=== PATIENT | male | born 1950 | race Caucasian/White ===

== ENCOUNTER 2018-12-25 14:52 | Emergency (ER) | payer OTHER, MEDICARE, SELFPAY ==
[2018-12-25] VITALS (11 sets, daily range): BP systolic 108–139; BP diastolic 39–76; PULSE 69–86; RESP 15–21; O2SAT 88–98
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
[2018-12-25 15:01] LABS: Add Manual Diff / Slide Review NO; Basophils Absolute Auto 0 /uL (0-100); Basophils Percent Auto 0.4 % (0-2); Eosinophils Absolute Auto 200 /uL (0-450); Eosinophils Percent Auto 2.1 % (2-4); Hematocrit 46.5 % (41-53); Lymphocytes Absolute Auto 2700 /uL (1100-4500); Lymphocytes Percent Auto 28.3 % (25-40); Mean Corpuscular HGB Conc 34.5 % (30-36); Mean Corpuscular Hemoglobin 32.1 PG (26-34); Monocytes Absolute Auto 800 /uL (0-900); Neutrophils Absolute Auto 5800 /uL (1500-7000); Neutrophils Percent Auto 61.2 % (50-75); Platelet Count 213 X10^3/uL (150-400); Red Cell Distribution Width 13.7 % (11.6-14.8); White Blood Cell Count 9.5 X10^3/uL (4.5-11.0)
[2018-12-25 15:07] LABS: PTT Partial Thromboplastin Tim 30 SECONDS (26.4-36.2)
[2018-12-25 15:09] LABS: Alanine Aminotransferase 19 IU/L (21-72); Albumin 4.1 g/dL (3.5-5.0); Albumin Globulin Ratio 1.4 (1.0-2.8); Alkaline Phosphatase 99 U/L (38-126); Aspartate Aminotransferase 22 IU/L (17-59); Bilirubin Total 0.7 mg/dL (0.2-1.3); Blood Urea Nitrogen 17 mg/dL (9-20); Calcium 9.4 mg/dL (8.4-10.2); Carbon Dioxide 27 mmol/L (22-32); Chloride 98 mmol/L (98-107); Creatine Kinase 63 U/L (55-170); Estimated Glomerular Filt Rate > 60.0 mL/min (>60); Ethanol (ETOH) < 10 mg/dL; Globulin 2.9 g/dL (1.7-4.1); Glucose 102 mg/dL (80-110); HEMOLYSIS 21 (0-50); Lipase 26 U/L (23-300); Sodium 135 mmol/L (137-145)
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
[2018-12-25] MEDS: TET,DIPH,PERTUSS(ACELL),VAC/PF 0.5 ML SYRINGE IM (15:16)
[2018-12-25] MEDS: SODIUM CHLORIDE 0.9% 1,000 ML 1000 ML IV (15:17)
[2018-12-25 15:21] LABS: Troponin I < 0.012 ng/mL (0.01-0.034)
[2018-12-25 16:42] LABS: Urine Amphetamines Negative (Negative); Urine Barbiturates Negative (Negative); Urine Benzodiazepines Negative (Negative); Urine Cocaine Negative (Negative); Urine MDMA Negative (Negative); Urine Methadone Negative (Negative); Urine Methamphetamines Negative (Negative); Urine Morphine/Opi cutoff 2000 Negative (Negative); Urine Oxycodone Negative (Negative); Urine Phencyclidine Negative (Negative); Urine Tetrahydrocannabinol Negative (Negative); Urine Tricyclic Antidepressant Negative (Negative)
[2018-12-25] MEDS: MORPHINE 4 MG/ML INJ IV (19:24)
== END 2018-12-25 22:37 | disposition short-term general hospital (02) ==
PROVIDERS: Emergency Provider Emergency Medicine
DX: R55 Syncope and collapse (principal); S50.812A Abrasion of left forearm, initial encounter; S32.010A Wedge compression fracture of first lumbar vertebra, initial encounter for closed fracture; R07.9 Chest pain, unspecified; V57.5XXA Driver of pick-up truck or van injured in collision with fixed or stationary object in traffic accident, initial encounter; Y99.0 Civilian activity done for income or pay; Z23 Encounter for immunization; Z79.82 Long term (current) use of aspirin
CPT/HCPCS: 36415; 36591; 70450; 71046; 72100; 80053; 80305; 80320; 81003; 82550; 82962; 83690; 84484; 85025; 85610; 85730; 86850; 86900; 86901; 90472; 93005; 96361; 96372; 96374; 99285; 90715; J2270

== ENCOUNTER 2019-08-04 10:39 | Day surgery (SDC) | payer OTHER, SELFPAY ==
[2019-07-31 09:37] VITALS: BMI 33.7
[2019-08-04] VITALS (8 sets, daily range): BP systolic 122–148; BP diastolic 66–88; PULSE 53–64; RESP 12–20; TEMP 36.2–37.1; O2SAT 92–96; BMI 33.7
[2019-08-04] MEDS: LACTATED RINGERS 1,000 ML 42 ML IV (11:55)
--- NOTE | 2019-08-04 12:07 | PM.PREOP ---
Pre-operative Note Interval Note History & Physical reviewed/Exam performed by Physician: Yes Changes to H&P: No
--- NOTE | 2019-08-04 13:23 | SUR.PREOP ---
Block start time [1306] . Monitoring initiated and maintained throughout procedure. Oxygen and medications given per anesthesiologist instructions. Patient remained stable throughout procedure, no adverse reactions noted. Block end time [1320]. pt alert and vss. pt talking to RN during procedure. Pt taken directly into the OR after completion of the block by JOSÉ MIGUEL Solano.
[2019-08-04] MEDS: CEFAZOLIN 2 GM/100 ML FROZ.PIGGY IV (13:30)
--- NOTE | 2019-08-04 13:51 | PM.PROC.1 ---
Procedures Date/Time Date of procedure: 08/04/19 Time of procedure: 13:15 General Procedure description: Ultrasound guided interscalene brachial plexus nerve block for post op pain control after right shoulder by Dr. Villagomez. Risk and benefits of procedure discussed with patient. ASA monitoring applied to patient. O2 given via nasal cannula. 2 mg Versed and 50 mcg fentanyl given for procedural sedation. Skin site was prepped with chlorhexidine and allowed to fully dry. Sterile gloves, mask, hat and probe cover were used to maintain sterility. 2% lidocaine and 30ga needle was used to make a small skin wheal at needle insertion site. Under ultrasound guidance, a 21ga 50mm [place] needle was directed into the interscalene groove (middle/anterior scalenes) near the brachial plexus. Patient reported no parasthesias. After negative aspiration, 20 mL 0.5% ropivicaine and 10mg dexamethasone were injected around brachial plexus. Patient tolerated procedure well.
--- NOTE | 2019-08-04 13:57 | SUR.OPER ---
Lateral on padded OR bed with persaud bag positioner, head on pillow, gel axillary roll in place, bottom leg bent with gel pad under knee to foot, upper leg straight and supported with pillows. Operative arm secured in shoulder positioning suspension device. non-operative arm secured on padded arm board. Safety belt at hip, tape over blanket securing lower legs.
[2019-08-04] MEDS: BUPIVACAINE 0.5% W/ EPI (PF) 10 ML VIAL 30 ML INJ (14:04)
[2019-08-04] MEDS: SODIUM CHLORIDE IRRIG SOLUTION 3,000 ML, EPINEPHrine 1 MG IRR (14:05)
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
[2019-08-04] MEDS: OXYCODONE IR 5 MG TABLET PO (15:27)
[2019-08-04] MEDS: hydrOXYzine pamoate 25 MG CAPSULE PO (15:27)
== END 2019-08-04 15:47 | disposition home or self-care (01) ==
PROVIDERS: PCP Family Medicine; Referring Provider Orthopaedic Surgery; Visit Provider Orthopaedic Surgery
PROC: (CPT 29827; principal; 2019-08-04 12:45)
DX: S46.011A Strain of muscle(s) and tendon(s) of the rotator cuff of right shoulder, initial encounter (principal); M75.21 Bicipital tendinitis, right shoulder; M19.011 Primary osteoarthritis, right shoulder
CPT/HCPCS: 29824; 29826; 64415; J0171; J0690; J1100; J2250; J2405; J2704; J3010